=== PATIENT | male | born 1975 | race Caucasian/White ===

== ENCOUNTER 2022-08-09 01:25 | Observation (INO) | payer BC ==
[2022-08-09] MEDS ORDERED: Acetaminophen 500 MG TAB ONE (01:55)
[2022-08-09] MEDS ORDERED: Mag-Al Plus 1200 MG/1200 MG/120 MG/30 ML UDCUP ONE (01:59)
[2022-08-09 02:01] LABS: #Basophils 0.1 10x3/uL (0.0-0.2); #Eosinphils 0.1 10x3/uL (0.0-0.5); #Monocytes 0.3 10x3/uL (0.0-1.1); #Neutrophils 4.6 10x3/uL (1.5-8.4); %Basophils 1.1 % (0.0-2.0); %Eosinophils 1.5 % (0.0-6.0); %Lymphocytes 6.6 % (18.0-47.0); %Monocytes 5.8 % (0.0-10.0); %Neutrophils 83.9 % (40.0-75.0); Hemoglobin 17.9 g/dL (13.5-17.5); Mean Corpuscular HGB CONC 33.3 g/dL (32.0-36.0); Mean Corpuscular Hemoglobin 29.6 pg (27.0-33.0); Mean Corpuscular Volume 89.1 fl (81.2-95.1); Mean Platelet Volume 10.4 fl (7.4-10.4); Platelet Count 185 10x3/uL (150-450); RBC Distribution Width 15.9 % (11.5-14.5); Red Blood Cell (RBC) Count 6.04 10x6/uL (4.32-5.72); White Blood Cell (WBC) Count 5.5 10x3/uL (3.5-10.5)
[2022-08-09 02:20] LABS: ALT (SGPT) 14 U/L (8-55); AST (SGOT) 20 U/L (5-34); Albumin 4.2 g/dL (3.5-5.0); Alkaline Phosphatase 43 U/L (40-110); Anion Gap 17 mmol/L (10-20); BUN (Urea Nitrogen) 18 mg/dL (8.9-20.6); Bilirubin, Total 0.4 mg/dL (0.2-1.2); Calc. Creatinine Clearance 0 mL/min (70-130); Calcium 9.1 mg/dL (7.8-10.44); Carbon Dioxide 19 mmol/L (22-29); Chloride 111 mmol/L (98-107); Estimated GFR 65; Globulin 1.9 g/dL (2.4-3.5); Glucose 105 mg/dL (70-105); Lipase 65 U/L (8-78); Potassium 4.3 mmol/L (3.5-5.1); Protein, Total 6.1 g/dL (6.0-8.3); Sodium 143 mmol/L (136-145)
[2022-08-09] MEDS ORDERED: Morphine 2 MG/ML VIAL ONE (03:11)
[2022-08-09] MEDS ORDERED: Nitroglycerin 0.4 MG TAB (25 Tab Bottle) SL PRN (03:17)
[2022-08-09] MEDS ORDERED: Ondansetron ODT 4 MG TAB PO PRN (03:20)
[2022-08-09] MEDS ORDERED: Senokot S 8.6-50 MG TAB PO PRN (03:20)
[2022-08-09] MEDS ORDERED: Lactated Ringer's 500 ML IV SCH (04:30)
[2022-08-09 04:31] VITALS: BMI 27.7
[2022-08-09 04:32] LABS: Troponin I Less than 0.010 ng/mL (< 0.028)
[2022-08-09] MEDS: Acetaminophen 325 MG TAB PO PRN ×2 (04:54→09:35)
[2022-08-09 06:39] LABS: Troponin I Less than 0.010 ng/mL (< 0.028)
[2022-08-09 07:00] LABS: SARS-CoV-2 NAA Rapid Test Not Detected (NotDetected)
[2022-08-09] MEDS ORDERED: Aspirin Chewable 81 MG TAB PO SCH (09:00)
[2022-08-09] MEDS ORDERED: Sodium Chloride 0.9% 1,000 ML IV SCH (09:00)
[2022-08-09] MEDS ORDERED: Enoxaparin Sodium 40 MG/0.4 ML SYRINGE SC SCH (09:00)
[2022-08-09] MEDS ORDERED: Famotidine 20 MG TAB PO SCH (09:00)
[2022-08-09 10:38] LABS: Anion Gap 15 mmol/L (10-20); BUN (Urea Nitrogen) 17 mg/dL (8.9-20.6); Calc. Creatinine Clearance 92 mL/min (70-130); Carbon Dioxide 22 mmol/L (22-29); Chloride 109 mmol/L (98-107); Estimated GFR 71; Glucose 94 mg/dL (70-105); Potassium 4.2 mmol/L (3.5-5.1); Sodium 142 mmol/L (136-145)
[2022-08-09] MEDS ORDERED: fentaNYL 50 mcg/hour Patch TD SCH (11:30)
[2022-08-09 13:17] VITALS: BP 126/75; TEMP 97.9
== END 2022-08-09 15:38 | disposition home or self-care (01) ==
LOC: CSHERS 01:25 → CSHTELE 03:45
PROVIDERS: ADMIT Student in an Organized Health Care Education/Training Program; ATTEND Physician Assistant
DX: R07.2 Precordial pain (principal); I10 Essential (primary) hypertension; G89.4 Chronic pain syndrome; N17.9 Acute kidney failure, unspecified; Z79.82 Long term (current) use of aspirin; Z79.899 Other long term (current) drug therapy; Z20.822 Contact with and (suspected) exposure to COVID-19; Z98.1 Arthrodesis status
CPT/HCPCS: 36415; 71045; 80053; 83605; 83690; 84484; 85025; 93005; 96374; G0378; J2270; J7050; J7120; Q0162; U0002